=== PATIENT | male | born 1955 | race Caucasian/White ===

== ENCOUNTER 2017-09-03 10:10 | Inpatient (IN) | payer OTHER ==
[~2017-09-03 10:10] MED LIST: ETOMIDATE 20 MG INJ; SUCCINYLCHOLINE CHLORIDE 100 MG/5 ML SYG IV
[2017-09-03] MEDS: SODIUM CHLORIDE 0.9% 1L BAG IV* (10:35)
[2017-09-03] MEDS: CEFEPIME 1GM/50 ML (PMX) 50 ML IVPB (10:37)
[2017-09-03] MEDS: ACETAMINOPHEN 650 MG SUPP PR (10:40)
[2017-09-03 10:42] LABS: ADD MAN DIFF? NO
[2017-09-03 10:51] LABS: ABNORMAL IP MESSAGE 1; BASOPHILS % 0.2 % (0.0-2.0); HEMATOCRIT 38.8 % (42.0-52.0); HEMOGLOBIN 12.2 g/dl (14.0-18.0); LYMPHOCYTES # 0.5 10^3/ul (0.8-2.9); LYMPHOCYTES % 4.8 % (15.0-51.0); MEAN CORPUSCULAR HEMOGLOBIN 31.6 pg (29.0-33.0); MEAN CORPUSCULAR HGB CONC 31.4 g/dl (32.0-37.0); MEAN CORPUSCULAR VOLUME 100.5 fl (82.0-101.0); MEAN PLATELET VOLUME 9.8 fl (7.4-10.4); MONOCYTE # 1.1 10^3/ul (0.3-0.9); MONOCYTES % 10.5 % (0.0-11.0); NEUTROPHIL # 8.6 10^3/ul (1.6-7.5); NEUTROPHILS % 83.7 % (39.0-77.0); PLATELET COUNT 357 10^3/UL (140-415); POSITIVE DIFF @See below; RED BLOOD COUNT 3.86 10^6/ul (4.70-6.10); RED CELL DISTRIBUTION WIDTH 12.4 % (11.5-14.5)
[2017-09-03 10:51] LABS: WHITE BLOOD COUNT 10.2 10^3/ul (4.8-10.8)
[2017-09-03] MEDS: VANCOMYCIN 1 GM (PMX) 250 ML IVPB (10:51)
[2017-09-03] MEDS: MIDAZOLAM (DRIP) 50 mg/50 mL 50 ML IV (10:55)
[2017-09-03 10:57] LABS: ADD UMIC YES; UR ASCORBIC ACID NEGATIVE (NEGATIVE); UR BACTERIA FEW /HPF (NONE SEEN); UR BILIRUBIN (Dip) NEGATIVE (NEGATIVE); UR BLOOD (Dip) 1+ mg/dL (NEGATIVE); UR CLARITY CLEAR (CLEAR); UR COLOR AMBER (YELLOW); UR GLUCOSE (Dip) NEGATIVE (NEGATIVE); UR KETONES (Dip) NEGATIVE (NEGATIVE); UR LEUKOCYTE ESTERASE (Dip) NEGATIVE Leu/ul (NEGATIVE); UR MUCUS FEW /HPF (NONE SEEN); UR NITRITE (Dip) NEGATIVE (NEGATIVE); UR RBC 1 /HPF (0-5); UR SPECIFIC GRAVITY (Dip) 1.032 (1.003-1.030); UR TOTAL PROTEIN (Dip) 2+ mg/dl (NEGATIVE); UR UROBILINOGEN (Dip) 2+ mg/dL (NEGATIVE); UR WBC 2 /HPF (0-5)
[2017-09-03 11:09] LABS: INR 1.36; PT RATIO 1.3
[2017-09-03 11:12] LABS: AADO2 Arterial 300.3 mmHg (7.0-24.0); Allen Test ACCEPTAB; Arterial Base Excess -8.4 mmol/L (-3.0-3); Arterial Blood Gas Oxygen Sat 99.4 mmHG (95.0-98.0); Arterial COHb 0.3 % (0.0-3.0); Arterial Fraction of Oxyhgb 98.7 % (93.0-99.0); Arterial HCO3 18.2 mmol/L (22.0-26.0); Arterial MetHb 0.4 % (0.0-1.5); Arterial Total Hemglobin 12.2 g/dl (12.0-18.0); Arterial pCO2 41.5 mmhg (35-45); MODE VENT - AC; Site Right Radial
[2017-09-03 11:17] LABS: ALANINE AMINOTRANSFERASE 39 IU/L (13-69); ALBUMIN/GLOBULIN RATIO 0.71; ALKALINE PHOSPHATASE 154 IU/L (42-121); ANION GAP 12 (8-16); ASPARTATE AMINO TRANSFERASE 32 IU/L (15-46); BILIRUBIN,INDIRECT 1.1 mg/dl (0-1.1); BILIRUBIN,TOTAL 1.2 mg/dl (0.2-1.3); BLOOD UREA NITROGEN 37 mg/dl (7-20); CALCIUM 8.1 mg/dl (8.4-10.2); CARBON DIOXIDE 22 mmol/L (21-31); CHLORIDE 127 mmol/L (97-110); CREATININE 1.07 mg/dl (0.61-1.24); GLUCOSE 137 mg/dl (70-220); LIPASE 79 U/L (23-300); POTASSIUM 4.2 mmol/L (3.5-5.1); SODIUM 157 mmol/L (135-144); TOTAL PROTEIN 7.2 g/dl (6.1-8.1)
[2017-09-03 11:28] LABS: TROPONIN-I 0.098 ng/ml (0.000-0.120)
[2017-09-03] MEDS ORDERED: LORAZEPAM 2 MG INJ (11:56)
[2017-09-03] MEDS: LORAZEPAM 2 MG INJ IV (12:02)
[2017-09-03] MEDS ORDERED: DANTROLENE 20 MG INJ IV (12:03)
[2017-09-03 12:15] LABS: PARTIAL THROMBOPLASTIN TIME 26.2 Sec (25.0-35.0)
[2017-09-03] MEDS: DANTROLENE SODIUM 250 MG VIAL IV (12:24)
[2017-09-03 13:04] LABS: LACTIC ACID 1.4 mmol/L (0.5-2.0)
[2017-09-03] MEDS: SOD CHLORIDE 0.9% 1,000 ML IV ×2 (13:40→16:30)
[2017-09-03] MEDS ORDERED: NORepinephrine 8MG/250 ML (PMX 250 ML (14:40)
[2017-09-03] MEDS: NORepinephrine 8MG/250 ML (PMX 250 ML IV (14:49)
[2017-09-03] MEDS ORDERED: MAGNESIUM HYDROXIDE 30ML CUP PO (16:00)
[2017-09-03] MEDS ORDERED: HYDROCODONE/APAP (5/325) TAB PO (16:00)
[2017-09-03] MEDS ORDERED: NACL 0.9% 3 ML SYG IV (16:00)
[2017-09-03] MEDS ORDERED: BISACODYL (EC) 5 MG TAB PO (16:00)
[2017-09-03] MEDS ORDERED: VANCOMYCIN IV PER PHARMACY XX (16:00)
[2017-09-03] MEDS ORDERED: ONDANSETRON 4 MG INJ IV (16:00)
[2017-09-03] MEDS ORDERED: DOCUSATE SODIUM 100 MG CAP PO (16:00)
[2017-09-03 16:06] LABS: CREATINE KINASE 81 IU/L (23-200)
[2017-09-03 16:06] LABS: ALBUMIN 2.3 g/dl (3.3-4.9); ANION GAP 6 (8-16); BLOOD UREA NITROGEN 31 mg/dl (7-20); CALCIUM 6.5 mg/dl (8.4-10.2); CARBON DIOXIDE 18 mmol/L (21-31); CHLORIDE 132 mmol/L (97-110); CREATININE 0.77 mg/dl (0.61-1.24); GLUCOSE 122 mg/dl (70-220); PHOSPHORUS 3.6 mg/dl (2.5-4.9); POTASSIUM 3.4 mmol/L (3.5-5.1); SODIUM 153 mmol/L (135-144)
[2017-09-03 16:53] LABS: AMMONIA 13 umol/l (9-30)
[2017-09-03 17:23] LABS: THYROID STIMULATING HORMONE 0.528 MIU/L (0.465-4.680)
[2017-09-03] MEDS: PIPER-TAZO 3.375 GM IV (PMX) 100 ML IVPB (17:37)
[2017-09-03] MEDS: DEXTROSE 5% 1,000 ML IV (17:37)
[2017-09-03] MEDS ORDERED: PENDING SANTYL ORDER FOR WOUND CARE XX (19:00)
[2017-09-03 20:14] LABS: AADO2 Arterial 232.6 mmHg (7.0-24.0); Allen Test ACCEPTAB; Arterial Base Excess -5.1 mmol/L (-3.0-3); Arterial Blood Gas Oxygen Sat 98.9 mmHG (95.0-98.0); Arterial COHb 0.3 % (0.0-3.0); Arterial Fraction of Oxyhgb 98.3 % (93.0-99.0); Arterial HCO3 18.9 mmol/L (22.0-26.0); Arterial MetHb 0.3 % (0.0-1.5); Arterial Total Hemglobin 12.2 g/dl (12.0-18.0); Arterial pCO2 32.1 mmhg (35-45); MODE VENT - AC; Site Right Radial
[2017-09-03 21:09] LABS: ALANINE AMINOTRANSFERASE 28 IU/L (13-69); ALBUMIN 2.6 g/dl (3.3-4.9); ALKALINE PHOSPHATASE 118 IU/L (42-121); ANION GAP 11 (8-16); ASPARTATE AMINO TRANSFERASE 27 IU/L (15-46); BILIRUBIN,INDIRECT 0.7 mg/dl (0-1.1); BILIRUBIN,TOTAL 1.1 mg/dl (0.2-1.3); BLOOD UREA NITROGEN 30 mg/dl (7-20); CALCIUM 7.4 mg/dl (8.4-10.2); CARBON DIOXIDE 21 mmol/L (21-31); CHLORIDE 126 mmol/L (97-110); CREATININE 0.69 mg/dl (0.61-1.24); GLUCOSE 146 mg/dl (70-220); POTASSIUM 3.5 mmol/L (3.5-5.1); SODIUM 154 mmol/L (135-144); TOTAL PROTEIN 6.3 g/dl (6.1-8.1)
[2017-09-03] MEDS: VANCOMYCIN 750 MG in SOD CHLORIDE 0.9% 150 ML IVPB (22:39)
[2017-09-04] MEDS: PANTOPRAZOLE 40 MG INJ IV (05:39)
[2017-09-04] MEDS: PIPER-TAZO 3.375 GM IV (PMX) 100 ML IVPB ×5 (05:39→23:57)
[2017-09-04 05:40] LABS: ADD MAN DIFF? NO
[2017-09-04 05:43] LABS: WHITE BLOOD COUNT 15.1 10^3/ul (4.8-10.8)
[2017-09-04 05:43] LABS: BASOPHILS % 0.2 % (0.0-2.0); EOSINOPHILS % 0.1 % (0.0-7.0); HEMATOCRIT 34.7 % (42.0-52.0); HEMOGLOBIN 11.2 g/dl (14.0-18.0); LYMPHOCYTES # 1.6 10^3/ul (0.8-2.9); LYMPHOCYTES % 10.3 % (15.0-51.0); MEAN CORPUSCULAR HEMOGLOBIN 32.6 pg (29.0-33.0); MEAN CORPUSCULAR HGB CONC 32.3 g/dl (32.0-37.0); MEAN CORPUSCULAR VOLUME 100.9 fl (82.0-101.0); MEAN PLATELET VOLUME 10.2 fl (7.4-10.4); MONOCYTE # 0.6 10^3/ul (0.3-0.9); MONOCYTES % 3.6 % (0.0-11.0); NEUTROPHIL # 12.9 10^3/ul (1.6-7.5); NEUTROPHILS % 85.2 % (39.0-77.0); PLATELET COUNT 282 10^3/UL (140-415); RED BLOOD COUNT 3.44 10^6/ul (4.70-6.10); RED CELL DISTRIBUTION WIDTH 12.8 % (11.5-14.5)
[2017-09-04 06:09] LABS: CREATINE KINASE 59 IU/L (23-200)
[2017-09-04 06:14] LABS: ALANINE AMINOTRANSFERASE 30 IU/L (13-69); ALBUMIN 2.3 g/dl (3.3-4.9); ALBUMIN/GLOBULIN RATIO 0.65; ALKALINE PHOSPHATASE 123 IU/L (42-121); ANION GAP 8 (8-16); ASPARTATE AMINO TRANSFERASE 23 IU/L (15-46); BILIRUBIN,INDIRECT 0.7 mg/dl (0-1.1); BILIRUBIN,TOTAL 0.9 mg/dl (0.2-1.3); BLOOD UREA NITROGEN 26 mg/dl (7-20); CARBON DIOXIDE 21 mmol/L (21-31); CHLORIDE 128 mmol/L (97-110); CREATININE 0.63 mg/dl (0.61-1.24); GLUCOSE 108 mg/dl (70-220); MAGNESIUM 1.8 mg/dl (1.7-2.5); POTASSIUM 3.6 mmol/L (3.5-5.1); SODIUM 153 mmol/L (135-144); TOTAL PROTEIN 5.8 g/dl (6.1-8.1)
[2017-09-04 06:21] LABS: HEMOGLOBIN A1C 5.2 % (0-5.9)
[2017-09-04 08:36] LABS: AADO2 Arterial 178.3 mmHg (7.0-24.0); Allen Test ACCEPTAB; Arterial COHb 0.3 % (0.0-3.0); Arterial Fraction of Oxyhgb 94.5 % (93.0-99.0); Arterial HCO3 19.3 mmol/L (22.0-26.0); Arterial MetHb 0.2 % (0.0-1.5); Arterial Total Hemglobin 11.4 g/dl (12.0-18.0); Arterial pCO2 29.7 mmhg (35-45); MODE VENT - AC; Site Right Radial
[2017-09-04] MEDS: MIDAZOLAM (DRIP) 50 mg/50 mL 50 ML IV (08:52)
[2017-09-04] MEDS: VANCOMYCIN 750 MG in SOD CHLORIDE 0.9% 150 ML IVPB ×2 (09:37→21:27)
[2017-09-04] MEDS: DEXTROSE 5% 1,000 ML IV ×2 (09:38→11:27)
[2017-09-04 12:22] LABS: HAAIG REFLEX REFLEX FILED
[2017-09-04] MEDS: PROPOFOL 100 ML IV (12:43)
[2017-09-04] MEDS ORDERED: PROPOFOL 100 ML IV (13:00)
[2017-09-04] MEDS: ACETAMINOPHEN 325 MG TAB PO (15:34)
[2017-09-04 21:02] LABS: VANCOMYCIN,TROUGH 7.7 ug/ml (10.0-20.0)
[2017-09-04 21:42] LABS: HIV 1&2 ANTIBODY NEGATIVE (NEGATIVE)
[2017-09-05] MEDS: DEXTROSE 5% 1,000 ML IV ×2 (02:50→07:00)
[2017-09-05 04:19] LABS: HEPATITIS B SURFACE ANTIGEN NEGATIVE (NEGATIVE)
[2017-09-05 04:37] LABS: HEPATITIS B CORE ANTIBODY NEGATIVE (NEGATIVE); HEPATITIS C VIRAL ANTIBODY REACTIVE (NEGATIVE)
[2017-09-05 05:03] LABS: Allen Test ACCEPTAB; Arterial Base Excess -1.3 mmol/L (-3.0-3); Arterial Blood Gas Oxygen Sat 97.6 mmHG (95.0-98.0); Arterial COHb 0.7 % (0.0-3.0); Arterial Fraction of Oxyhgb 96.5 % (93.0-99.0); Arterial HCO3 21.1 mmol/L (22.0-26.0); Arterial MetHb 0.4 % (0.0-1.5); Arterial pCO2 29.5 mmhg (35-45); MODE VENT - AC; Site Right Radial
[2017-09-05 05:27] LABS: ADD MAN DIFF? NO
[2017-09-05 05:31] LABS: BASOPHILS % 0.2 % (0.0-2.0); EOSINOPHILS % 0.1 % (0.0-7.0); HEMATOCRIT 34.9 % (42.0-52.0); HEMOGLOBIN 11.3 g/dl (14.0-18.0); LYMPHOCYTES # 0.9 10^3/ul (0.8-2.9); LYMPHOCYTES % 5.3 % (15.0-51.0); MEAN CORPUSCULAR HEMOGLOBIN 32.3 pg (29.0-33.0); MEAN CORPUSCULAR HGB CONC 32.4 g/dl (32.0-37.0); MEAN CORPUSCULAR VOLUME 99.7 fl (82.0-101.0); MEAN PLATELET VOLUME 10.4 fl (7.4-10.4); MONOCYTE # 0.5 10^3/ul (0.3-0.9); MONOCYTES % 3.3 % (0.0-11.0); NEUTROPHIL # 14.7 10^3/ul (1.6-7.5); NEUTROPHILS % 90.2 % (39.0-77.0); PLATELET COUNT 217 10^3/UL (140-415); RED CELL DISTRIBUTION WIDTH 12.7 % (11.5-14.5)
[2017-09-05 05:31] LABS: WHITE BLOOD COUNT 16.2 10^3/ul (4.8-10.8)
[2017-09-05] MEDS: VANCOMYCIN 750 MG in SOD CHLORIDE 0.9% 150 ML IVPB ×4 (05:55→21:13)
[2017-09-05] MEDS: PANTOPRAZOLE 40 MG INJ IV (05:55)
[2017-09-05 05:56] LABS: MAGNESIUM 1.7 mg/dl (1.7-2.5)
[2017-09-05] MEDS: PIPER-TAZO 3.375 GM IV (PMX) 100 ML IVPB ×3 (05:56→18:26)
[2017-09-05 06:03] LABS: ALANINE AMINOTRANSFERASE 28 IU/L (13-69); ALBUMIN 2.6 g/dl (3.3-4.9); ALKALINE PHOSPHATASE 143 IU/L (42-121); ANION GAP 9 (8-16); ASPARTATE AMINO TRANSFERASE 26 IU/L (15-46); BILIRUBIN,INDIRECT 0.8 mg/dl (0-1.1); BILIRUBIN,TOTAL 1.2 mg/dl (0.2-1.3); BLOOD UREA NITROGEN 19 mg/dl (7-20); CARBON DIOXIDE 22 mmol/L (21-31); CHLORIDE 120 mmol/L (97-110); CREATININE 0.63 mg/dl (0.61-1.24); GLUCOSE 113 mg/dl (70-220); POTASSIUM 3.1 mmol/L (3.5-5.1); SODIUM 148 mmol/L (135-144); TOTAL PROTEIN 6.3 g/dl (6.1-8.1)
[2017-09-05 06:10] LABS: LACTIC ACID 1.3 mmol/L (0.5-2.0)
[2017-09-05 06:26] LABS: FREE THYROXINE INDEX (Calc) 3.98 ug/ml (0.65-3.89); T3 UPTAKE 43.3 % (23.5-40.5); T4 (THYROXINE) 9.2 ug/dl (5.5-11.0)
[2017-09-05 06:55] LABS: AMMONIA < 9 umol/l (9-30)
[2017-09-05] MEDS: POTASSIUM CHLORIDE 50 ML IVPB ×2 (09:56→11:37)
[2017-09-05] MEDS: MUPIROCIN 2% 22 GM OINT TOP ×2 (10:54→21:13)
[2017-09-05] MEDS: PROPOFOL 100 ML IV ×2 (11:38→13:00)
[2017-09-05] MEDS: COLLAGENASE 5 GM (UD JAR) TOP (16:00)
[2017-09-05] MEDS: ACETAMINOPHEN 325 MG TAB PO (19:48)
[2017-09-06] MEDS: PIPER-TAZO 3.375 GM IV (PMX) 100 ML IVPB ×4 (00:56→17:03)
[2017-09-06 04:51] LABS: AADO2 Arterial 147.6 mmHg (7.0-24.0); Allen Test ACCEPTAB; Arterial Base Excess -2.6 mmol/L (-3.0-3); Arterial Blood Gas Oxygen Sat 97.9 mmHG (95.0-98.0); Arterial COHb 0.3 % (0.0-3.0); Arterial Fraction of Oxyhgb 97.3 % (93.0-99.0); Arterial HCO3 20.5 mmol/L (22.0-26.0); Arterial MetHb 0.3 % (0.0-1.5); Arterial pCO2 30.6 mmhg (35-45); MODE VENT - AC; Site Right Radial
[2017-09-06 05:02] LABS: ADD MAN DIFF? NO
[2017-09-06 05:24] LABS: BASOPHILS % 0.2 % (0.0-2.0); EOSINOPHILS # 0.1 10^3/ul (0.0-0.5); EOSINOPHILS % 0.4 % (0.0-7.0); HEMATOCRIT 32.1 % (42.0-52.0); HEMOGLOBIN 10.3 g/dl (14.0-18.0); LYMPHOCYTES # 1.1 10^3/ul (0.8-2.9); LYMPHOCYTES % 5.8 % (15.0-51.0); MEAN CORPUSCULAR HEMOGLOBIN 31.5 pg (29.0-33.0); MEAN CORPUSCULAR HGB CONC 32.1 g/dl (32.0-37.0); MEAN CORPUSCULAR VOLUME 98.2 fl (82.0-101.0); MONOCYTE # 0.6 10^3/ul (0.3-0.9); MONOCYTES % 3.1 % (0.0-11.0); NEUTROPHIL # 17.4 10^3/ul (1.6-7.5); PLATELET COUNT 238 10^3/UL (140-415); RED BLOOD COUNT 3.27 10^6/ul (4.70-6.10); RED CELL DISTRIBUTION WIDTH 12.8 % (11.5-14.5)
[2017-09-06 05:24] LABS: WHITE BLOOD COUNT 19.5 10^3/ul (4.8-10.8)
[2017-09-06 05:28] LABS: LACTIC ACID 1.1 mmol/L (0.5-2.0)
[2017-09-06 05:33] LABS: AMMONIA < 9 umol/l (9-30)
[2017-09-06] MEDS ORDERED: NORepinephrine 8MG/250 ML (PMX 0 ML (05:47)
[2017-09-06 05:53] LABS: VANCOMYCIN,TROUGH 13.1 ug/ml (10.0-20.0)
[2017-09-06] MEDS: PANTOPRAZOLE 40 MG INJ IV (06:00)
[2017-09-06] MEDS: VANCOMYCIN 750 MG in SOD CHLORIDE 0.9% 150 ML IVPB ×3 (06:00→22:22)
[2017-09-06 06:01] LABS: ALANINE AMINOTRANSFERASE 27 IU/L (13-69); ALBUMIN 2.4 g/dl (3.3-4.9); ALKALINE PHOSPHATASE 135 IU/L (42-121); ANION GAP 7 (8-16); ASPARTATE AMINO TRANSFERASE 24 IU/L (15-46); BILIRUBIN,INDIRECT 0.8 mg/dl (0-1.1); BLOOD UREA NITROGEN 21 mg/dl (7-20); CALCIUM 7.9 mg/dl (8.4-10.2); CARBON DIOXIDE 23 mmol/L (21-31); CHLORIDE 118 mmol/L (97-110); CREATININE 0.58 mg/dl (0.61-1.24); GLUCOSE 110 mg/dl (70-220); POTASSIUM 3.2 mmol/L (3.5-5.1); SODIUM 145 mmol/L (135-144); TOTAL PROTEIN 5.8 g/dl (6.1-8.1)
[2017-09-06 06:51] LABS: MAGNESIUM 1.8 mg/dl (1.7-2.5)
[2017-09-06] MEDS: PROPOFOL 100 ML IV ×2 (08:25→12:34)
[2017-09-06] MEDS: MUPIROCIN 2% 22 GM OINT TOP ×2 (08:26→21:00)
[2017-09-06] MEDS: POTASSIUM CHLORIDE 20 MEQ POWDER FOR ORAL SOLN PO (09:02)
[2017-09-06] MEDS ORDERED: POTASSIUM CHLORIDE 20 MEQ POWDER FOR ORAL SOLN PO (09:30)
[2017-09-06 11:17] LABS: AADO2 Arterial 97.4 mmHg (7.0-24.0); Allen Test ACCEPTAB; Arterial Base Excess -1.9 mmol/L (-3.0-3); Arterial Blood Gas Oxygen Sat 96.4 mmHG (95.0-98.0); Arterial COHb 0.3 % (0.0-3.0); Arterial Fraction of Oxyhgb 95.8 % (93.0-99.0); Arterial HCO3 21.1 mmol/L (22.0-26.0); Arterial MetHb 0.3 % (0.0-1.5); Arterial Total Hemglobin 12.2 g/dl (12.0-18.0); Arterial pCO2 30.9 mmhg (35-45); Blood Gas PS 10; MODE VENT - CPAP; Site Right Radial
[2017-09-06] MEDS: DEXTROSE 5% 1,000 ML IV (11:43)
[2017-09-06] MEDS: MEROPENEM 500MG/50 ML (PMX) 50 ML IVPB ×2 (13:01→22:21)
[2017-09-06] MEDS: COLLAGENASE 5 GM (UD JAR) TOP (16:18)
[2017-09-06] MEDS: BALSAM PERU/CASTOR OIL 60 GM TUBE TOP ×2 (16:18→21:00)
[2017-09-06] MEDS: ACETAMINOPHEN 325 MG TAB PO (17:04)
[2017-09-07] MEDS: PIPER-TAZO 3.375 GM IV (PMX) 100 ML IVPB ×3 (05:36→11:36)
[2017-09-07] MEDS: MEROPENEM 500MG/50 ML (PMX) 50 ML IVPB ×3 (05:36→21:37)
[2017-09-07] MEDS: PANTOPRAZOLE 40 MG INJ IV (05:36)
[2017-09-07 06:27] LABS: ADD MAN DIFF? NO
[2017-09-07] MEDS: VANCOMYCIN 750 MG in SOD CHLORIDE 0.9% 150 ML IVPB ×3 (06:33→22:10)
[2017-09-07 06:37] LABS: WHITE BLOOD COUNT 12.4 10^3/ul (4.8-10.8)
[2017-09-07 06:37] LABS: BASOPHILS % 0.3 % (0.0-2.0); EOSINOPHILS # 0.1 10^3/ul (0.0-0.5); HEMATOCRIT 33.6 % (42.0-52.0); LYMPHOCYTES # 0.7 10^3/ul (0.8-2.9); LYMPHOCYTES % 5.3 % (15.0-51.0); MEAN CORPUSCULAR HEMOGLOBIN 31.6 pg (29.0-33.0); MEAN CORPUSCULAR HGB CONC 32.7 g/dl (32.0-37.0); MEAN CORPUSCULAR VOLUME 96.6 fl (82.0-101.0); MEAN PLATELET VOLUME 11.2 fl (7.4-10.4); MONOCYTE # 0.5 10^3/ul (0.3-0.9); NEUTROPHILS % 88.9 % (39.0-77.0); PLATELET COUNT 256 10^3/UL (140-415); RED BLOOD COUNT 3.48 10^6/ul (4.70-6.10); RED CELL DISTRIBUTION WIDTH 12.8 % (11.5-14.5)
[2017-09-07 07:00] LABS: ALANINE AMINOTRANSFERASE 24 IU/L (13-69); ALBUMIN 2.5 g/dl (3.3-4.9); ALBUMIN/GLOBULIN RATIO 0.69; ALKALINE PHOSPHATASE 205 IU/L (42-121); ANION GAP 7 (8-16); ASPARTATE AMINO TRANSFERASE 33 IU/L (15-46); BILIRUBIN,INDIRECT 0.5 mg/dl (0-1.1); BILIRUBIN,TOTAL 0.7 mg/dl (0.2-1.3); BLOOD UREA NITROGEN 20 mg/dl (7-20); CALCIUM 7.9 mg/dl (8.4-10.2); CARBON DIOXIDE 25 mmol/L (21-31); CHLORIDE 116 mmol/L (97-110); CREATININE 0.49 mg/dl (0.61-1.24); GLUCOSE 105 mg/dl (70-220); MAGNESIUM 1.9 mg/dl (1.7-2.5); POTASSIUM 3.3 mmol/L (3.5-5.1); SODIUM 145 mmol/L (135-144); TOTAL PROTEIN 6.1 g/dl (6.1-8.1)
[2017-09-07 07:42] LABS: Allen Test ACCEPTAB; Arterial Base Excess -0.9 mmol/L (-3.0-3); Arterial Blood Gas Oxygen Sat 93.6 mmHG (95.0-98.0); Arterial COHb 0.2 % (0.0-3.0); Arterial Fraction of Oxyhgb 93.3 % (93.0-99.0); Arterial HCO3 21.4 mmol/L (22.0-26.0); Arterial MetHb 0.1 % (0.0-1.5); Arterial pCO2 28.6 mmhg (35-45); MODE VENT - AC; Site Right Radial
[2017-09-07] MEDS: PROPOFOL 100 ML IV ×2 (08:01→13:00)
[2017-09-07] MEDS: THIAMINE 100 MG TAB NGT (09:03)
[2017-09-07] MEDS: MUPIROCIN 2% 22 GM OINT TOP ×2 (09:03→21:37)
[2017-09-07] MEDS: ASCORBIC ACID 500 MG TAB PO (09:03)
[2017-09-07] MEDS: BALSAM PERU/CASTOR OIL 60 GM TUBE TOP ×2 (09:03→21:36)
[2017-09-07] MEDS: COLLAGENASE 5 GM (UD JAR) TOP (09:03)
[2017-09-07] MEDS: ZINC SULFATE 220 MG CAP NGT (09:03)
[2017-09-07] MEDS: morphine 2 MG INJ IV (09:36)
[2017-09-07] MEDS: LORAZEPAM 2 MG INJ IV ×2 (10:15→23:25)
[2017-09-07] MEDS: POTASSIUM CHLORIDE 20 MEQ POWDER FOR ORAL SOLN PO (11:33)
[2017-09-07] MEDS ORDERED: POLYMYXIN/BACITRACIN 1L IRRIG (11:33)
[2017-09-07] MEDS ORDERED: MIDAZOLAM 1 MG/ML 2 ML INJ (12:02)
[2017-09-07] MEDS ORDERED: ROCURONIUM 50 MG INJ (12:02)
[2017-09-07] MEDS ORDERED: NEOSTIGMINE 3 MG/3 ML SYRINGE (12:02)
[2017-09-07] MEDS ORDERED: PROPOFOL 20 ML (12:02)
[2017-09-07] MEDS ORDERED: GLYCOPYRROLATE 0.4 MG INJ (12:02)
[2017-09-07] MEDS ORDERED: FENTAnyl 50 MCG/ML VIAL (12:02)
[2017-09-07] MEDS ORDERED: LIDOCAINE 2% (SDV) 5 ML INJ (12:02)
[2017-09-07] MEDS: LIDOCAINE 1%/EPI 30 ML INJ (13:18)
[2017-09-07] MEDS: SOD CHLORIDE 0.9% 1,000 ML IV (15:42)
[2017-09-08] MEDS: PROPOFOL 100 ML IV ×2 (01:00→13:00)
[2017-09-08] MEDS: SOD CHLORIDE 0.9% 1,000 ML IV (01:27)
[2017-09-08 04:51] LABS: ADD MAN DIFF? NO
[2017-09-08 04:54] LABS: WHITE BLOOD COUNT 7.1 10^3/ul (4.8-10.8)
[2017-09-08 04:54] LABS: BASOPHILS % 0.3 % (0.0-2.0); EOSINOPHILS # 0.2 10^3/ul (0.0-0.5); EOSINOPHILS % 2.1 % (0.0-7.0); HEMOGLOBIN 9.7 g/dl (14.0-18.0); LYMPHOCYTES # 0.6 10^3/ul (0.8-2.9); LYMPHOCYTES % 8.9 % (15.0-51.0); MEAN CORPUSCULAR HGB CONC 32.3 g/dl (32.0-37.0); MEAN PLATELET VOLUME 11.1 fl (7.4-10.4); MONOCYTE # 0.4 10^3/ul (0.3-0.9); MONOCYTES % 6.1 % (0.0-11.0); NEUTROPHIL # 5.8 10^3/ul (1.6-7.5); PLATELET COUNT 247 10^3/UL (140-415); RED BLOOD COUNT 3.03 10^6/ul (4.70-6.10); RED CELL DISTRIBUTION WIDTH 12.7 % (11.5-14.5)
[2017-09-08 05:15] LABS: ALANINE AMINOTRANSFERASE 34 IU/L (13-69); ALBUMIN 2.1 g/dl (3.3-4.9); ALBUMIN/GLOBULIN RATIO 0.63; ALKALINE PHOSPHATASE 150 IU/L (42-121); ANION GAP 8 (8-16); ASPARTATE AMINO TRANSFERASE 25 IU/L (15-46); BILIRUBIN,INDIRECT 0.6 mg/dl (0-1.1); BILIRUBIN,TOTAL 0.6 mg/dl (0.2-1.3); BLOOD UREA NITROGEN 17 mg/dl (7-20); CALCIUM 7.6 mg/dl (8.4-10.2); CARBON DIOXIDE 23 mmol/L (21-31); CHLORIDE 117 mmol/L (97-110); CREATININE 0.45 mg/dl (0.61-1.24); GLUCOSE 99 mg/dl (70-220); MAGNESIUM 1.8 mg/dl (1.7-2.5); POTASSIUM 3.3 mmol/L (3.5-5.1); SODIUM 145 mmol/L (135-144); TOTAL PROTEIN 5.4 g/dl (6.1-8.1)
[2017-09-08] MEDS: PANTOPRAZOLE 40 MG INJ IV (06:06)
[2017-09-08] MEDS: VANCOMYCIN 750 MG in SOD CHLORIDE 0.9% 150 ML IVPB ×3 (06:06→21:30)
[2017-09-08] MEDS: MEROPENEM 500MG/50 ML (PMX) 50 ML IVPB ×3 (06:06→21:30)
[2017-09-08] MEDS: COLLAGENASE 5 GM (UD JAR) TOP ×2 (09:00→09:02)
[2017-09-08] MEDS: ASCORBIC ACID 500 MG TAB PO (09:02)
[2017-09-08] MEDS: MUPIROCIN 2% 22 GM OINT TOP ×2 (09:02→21:20)
[2017-09-08] MEDS: BALSAM PERU/CASTOR OIL 60 GM TUBE TOP ×2 (09:02→21:19)
[2017-09-08] MEDS: ZINC SULFATE 220 MG CAP NGT (09:02)
[2017-09-08] MEDS: THIAMINE 100 MG TAB NGT (09:04)
[2017-09-08] MEDS: MAGNESIUM SULFATE 2 GM/50 ML 50 ML IVPB (09:08)
[2017-09-08] MEDS: POTASSIUM CHLORIDE 20 MEQ POWDER FOR ORAL SOLN NGT ×2 (10:24→13:49)
[2017-09-08 14:30] LABS: AADO2 Arterial 90.3 mmHg (7.0-24.0); Allen Test ACCEPTAB; Arterial Base Excess -0.9 mmol/L (-3.0-3); Arterial Blood Gas Oxygen Sat 95.8 mmHG (95.0-98.0); Arterial COHb 0.3 % (0.0-3.0); Arterial Fraction of Oxyhgb 95.2 % (93.0-99.0); Arterial HCO3 23.1 mmol/L (22.0-26.0); Arterial MetHb 0.3 % (0.0-1.5); Arterial Total Hemglobin 11.4 g/dl (12.0-18.0); Arterial pCO2 35.7 mmhg (35-45); Blood Gas PS 10; MODE VENT - CPAP; Site Right Radial
[2017-09-09] MEDS: PROPOFOL 100 ML IV ×2 (01:00→12:28)
[2017-09-09 05:24] LABS: ADD MAN DIFF? NO
[2017-09-09 05:33] LABS: BASOPHILS % 0.4 % (0.0-2.0); EOSINOPHILS # 0.2 10^3/ul (0.0-0.5); EOSINOPHILS % 2.2 % (0.0-7.0); HEMATOCRIT 30.9 % (42.0-52.0); HEMOGLOBIN 10.2 g/dl (14.0-18.0); LYMPHOCYTES # 0.8 10^3/ul (0.8-2.9); LYMPHOCYTES % 9.2 % (15.0-51.0); MEAN CORPUSCULAR HEMOGLOBIN 32.4 pg (29.0-33.0); MEAN CORPUSCULAR VOLUME 98.1 fl (82.0-101.0); MONOCYTE # 0.5 10^3/ul (0.3-0.9); MONOCYTES % 6.5 % (0.0-11.0); NEUTROPHIL # 6.7 10^3/ul (1.6-7.5); NEUTROPHILS % 81.1 % (39.0-77.0); PLATELET COUNT 347 10^3/UL (140-415); RED BLOOD COUNT 3.15 10^6/ul (4.70-6.10); RED CELL DISTRIBUTION WIDTH 12.5 % (11.5-14.5)
[2017-09-09 05:33] LABS: WHITE BLOOD COUNT 8.2 10^3/ul (4.8-10.8)
[2017-09-09] MEDS: VANCOMYCIN 750 MG in SOD CHLORIDE 0.9% 150 ML IVPB (05:35)
[2017-09-09] MEDS: PANTOPRAZOLE 40 MG INJ IV (05:35)
[2017-09-09] MEDS: MEROPENEM 500MG/50 ML (PMX) 50 ML IVPB (05:35)
[2017-09-09 05:55] LABS: VANCOMYCIN,TROUGH 17.5 ug/ml (10.0-20.0)
[2017-09-09 05:59] LABS: ALANINE AMINOTRANSFERASE 32 IU/L (13-69); ALBUMIN 2.3 g/dl (3.3-4.9); ALBUMIN/GLOBULIN RATIO 0.65; ALKALINE PHOSPHATASE 196 IU/L (42-121); ANION GAP 9 (8-16); ASPARTATE AMINO TRANSFERASE 40 IU/L (15-46); BILIRUBIN,INDIRECT 0.5 mg/dl (0-1.1); BILIRUBIN,TOTAL 0.5 mg/dl (0.2-1.3); BLOOD UREA NITROGEN 13 mg/dl (7-20); CALCIUM 7.7 mg/dl (8.4-10.2); CARBON DIOXIDE 25 mmol/L (21-31); CHLORIDE 113 mmol/L (97-110); GLUCOSE 108 mg/dl (70-220); MAGNESIUM 2.1 mg/dl (1.7-2.5); POTASSIUM 3.7 mmol/L (3.5-5.1); SODIUM 143 mmol/L (135-144); TOTAL PROTEIN 5.8 g/dl (6.1-8.1)
[2017-09-09 07:42] LABS: AADO2 Arterial 91.2 mmHg (7.0-24.0); Allen Test ACCEPTAB; Arterial Base Excess 3.7 mmol/L (-3.0-3); Arterial Blood Gas Oxygen Sat 96.5 mmHG (95.0-98.0); Arterial COHb 0.3 % (0.0-3.0); Arterial Fraction of Oxyhgb 95.9 % (93.0-99.0); Arterial HCO3 26.5 mmol/L (22.0-26.0); Arterial MetHb 0.3 % (0.0-1.5); Arterial Total Hemglobin 11.1 g/dl (12.0-18.0); Arterial pCO2 33.7 mmhg (35-45); MODE VENT - AC; Site Right Radial
[2017-09-09] MEDS: THIAMINE 100 MG TAB NGT (08:15)
[2017-09-09] MEDS: MUPIROCIN 2% 22 GM OINT TOP ×2 (08:15→21:10)
[2017-09-09] MEDS: ACETAMINOPHEN 325 MG TAB PO (08:15)
[2017-09-09] MEDS: ZINC SULFATE 220 MG CAP NGT (08:15)
[2017-09-09] MEDS: ASCORBIC ACID 500 MG TAB PO (08:15)
[2017-09-09] MEDS: BALSAM PERU/CASTOR OIL 60 GM TUBE TOP ×2 (08:16→21:10)
[2017-09-09] MEDS: MEROPENEM 1 GM/50ML(PMX) 50 ML IVPB ×2 (13:42→21:25)
[2017-09-09 14:27] LABS: AADO2 Arterial 81.3 mmHg (7.0-24.0); Allen Test ACCEPTAB; Arterial Base Excess 2.8 mmol/L (-3.0-3); Arterial COHb 0.3 % (0.0-3.0); Arterial Fraction of Oxyhgb 96.5 % (93.0-99.0); Arterial HCO3 26.2 mmol/L (22.0-26.0); Arterial MetHb 0.2 % (0.0-1.5); Arterial Total Hemglobin 11.3 g/dl (12.0-18.0); Arterial pCO2 35.8 mmhg (35-45); Blood Gas PS 10; MODE VENT - CPAP; Site Right Radial
[2017-09-09] MEDS: VANCOMYCIN 500MG/NS (PMX) 100 ML IVPB ×2 (14:55→22:33)
[2017-09-10] MEDS: PROPOFOL 100 ML IV (01:00)
[2017-09-10 04:50] LABS: ADD MAN DIFF? NO
[2017-09-10 04:55] LABS: WHITE BLOOD COUNT 7.6 10^3/ul (4.8-10.8)
[2017-09-10 04:55] LABS: BASOPHILS % 0.3 % (0.0-2.0); EOSINOPHILS # 0.2 10^3/ul (0.0-0.5); HEMATOCRIT 29.8 % (42.0-52.0); HEMOGLOBIN 9.6 g/dl (14.0-18.0); LYMPHOCYTES # 0.8 10^3/ul (0.8-2.9); LYMPHOCYTES % 10.8 % (15.0-51.0); MEAN CORPUSCULAR HEMOGLOBIN 31.2 pg (29.0-33.0); MEAN CORPUSCULAR HGB CONC 32.2 g/dl (32.0-37.0); MEAN CORPUSCULAR VOLUME 96.8 fl (82.0-101.0); MEAN PLATELET VOLUME 10.9 fl (7.4-10.4); MONOCYTE # 0.4 10^3/ul (0.3-0.9); MONOCYTES % 4.9 % (0.0-11.0); NEUTROPHIL # 6.2 10^3/ul (1.6-7.5); NEUTROPHILS % 81.2 % (39.0-77.0); PLATELET COUNT 335 10^3/UL (140-415); RED BLOOD COUNT 3.08 10^6/ul (4.70-6.10); RED CELL DISTRIBUTION WIDTH 12.7 % (11.5-14.5)
[2017-09-10 05:36] LABS: ANION GAP 6 (8-16); BLOOD UREA NITROGEN 8 mg/dl (7-20); CALCIUM 7.7 mg/dl (8.4-10.2); CARBON DIOXIDE 30 mmol/L (21-31); CHLORIDE 107 mmol/L (97-110); CREATININE 0.43 mg/dl (0.61-1.24); GLUCOSE 85 mg/dl (70-220); PHOSPHORUS 3.1 mg/dl (2.5-4.9); POTASSIUM 3.5 mmol/L (3.5-5.1); SODIUM 139 mmol/L (135-144)
[2017-09-10] MEDS: MEROPENEM 1 GM/50ML(PMX) 50 ML IVPB ×3 (05:54→21:44)
[2017-09-10] MEDS: PANTOPRAZOLE 40 MG INJ IV (05:54)
[2017-09-10] MEDS: VANCOMYCIN 500MG/NS (PMX) 100 ML IVPB ×3 (06:27→23:41)
[2017-09-10 08:12] LABS: AADO2 Arterial 72.8 mmHg (7.0-24.0); Arterial Base Excess 3.7 mmol/L (-3.0-3); Arterial Blood Gas Oxygen Sat 95.3 mmHG (95.0-98.0); Arterial COHb 0.4 % (0.0-3.0); Arterial Fraction of Oxyhgb 94.6 % (93.0-99.0); Arterial HCO3 27.3 mmol/L (22.0-26.0); Arterial MetHb 0.3 % (0.0-1.5); Arterial Total Hemglobin 11.3 g/dl (12.0-18.0); Arterial pCO2 37.2 mmhg (35-45); MODE NASAL CANNULA; Site Right Brachial
[2017-09-10] MEDS: ASCORBIC ACID 500 MG TAB PO (08:24)
[2017-09-10] MEDS: THIAMINE 100 MG TAB NGT (08:24)
[2017-09-10] MEDS: ZINC SULFATE 220 MG CAP NGT (08:24)
[2017-09-10] MEDS: BALSAM PERU/CASTOR OIL 60 GM TUBE TOP ×2 (08:54→20:23)
[2017-09-10] MEDS: MUPIROCIN 2% 22 GM OINT TOP ×2 (08:54→20:23)
[2017-09-10 23:11] LABS: VANCOMYCIN,TROUGH 12.5 ug/ml (10.0-20.0)
[2017-09-11] MEDS: MEROPENEM 1 GM/50ML(PMX) 50 ML IVPB ×3 (05:07→23:29)
[2017-09-11] MEDS: PANTOPRAZOLE 40 MG INJ IV (05:07)
[2017-09-11] MEDS: VANCOMYCIN 500MG/NS (PMX) 100 ML IVPB ×2 (05:08→18:06)
[2017-09-11 05:13] LABS: ADD MAN DIFF? NO
[2017-09-11 05:22] LABS: BASOPHIL # 0.1 10^3/ul (0.0-0.1); BASOPHILS % 0.6 % (0.0-2.0); EOSINOPHILS # 0.1 10^3/ul (0.0-0.5); HEMATOCRIT 31.8 % (42.0-52.0); HEMOGLOBIN 10.6 g/dl (14.0-18.0); LYMPHOCYTES # 0.8 10^3/ul (0.8-2.9); LYMPHOCYTES % 9.2 % (15.0-51.0); MEAN CORPUSCULAR HEMOGLOBIN 32.3 pg (29.0-33.0); MEAN CORPUSCULAR HGB CONC 33.3 g/dl (32.0-37.0); MEAN PLATELET VOLUME 10.5 fl (7.4-10.4); MONOCYTE # 0.4 10^3/ul (0.3-0.9); MONOCYTES % 5.1 % (0.0-11.0); NEUTROPHIL # 6.8 10^3/ul (1.6-7.5); NEUTROPHILS % 83.5 % (39.0-77.0); PLATELET COUNT 411 10^3/UL (140-415); RED BLOOD COUNT 3.28 10^6/ul (4.70-6.10); RED CELL DISTRIBUTION WIDTH 12.4 % (11.5-14.5)
[2017-09-11 05:22] LABS: WHITE BLOOD COUNT 8.2 10^3/ul (4.8-10.8)
[2017-09-11 05:42] LABS: ALBUMIN 2.7 g/dl (3.3-4.9); ANION GAP 8 (8-16); BLOOD UREA NITROGEN 7 mg/dl (7-20); CALCIUM 8.1 mg/dl (8.4-10.2); CARBON DIOXIDE 30 mmol/L (21-31); CHLORIDE 105 mmol/L (97-110); CREATININE 0.45 mg/dl (0.61-1.24); GLUCOSE 83 mg/dl (70-220); PHOSPHORUS 3.2 mg/dl (2.5-4.9); POTASSIUM 3.6 mmol/L (3.5-5.1); SODIUM 139 mmol/L (135-144)
[2017-09-11] MEDS: COLLAGENASE 5 GM (UD JAR) TOP (06:39)
[2017-09-11] MEDS: POTASSIUM CHLORIDE 20 MEQ POWDER FOR ORAL SOLN PO (06:52)
[2017-09-11] MEDS: ASCORBIC ACID 500 MG TAB PO (09:12)
[2017-09-11] MEDS: ZINC SULFATE 220 MG CAP NGT (09:12)
[2017-09-11] MEDS: BALSAM PERU/CASTOR OIL 60 GM TUBE TOP ×2 (09:12→22:13)
[2017-09-11] MEDS: THIAMINE 100 MG TAB NGT (09:12)
[2017-09-11] MEDS: MUPIROCIN 2% 22 GM OINT TOP ×2 (09:12→22:13)
[2017-09-12] MEDS: VANCOMYCIN 500MG/NS (PMX) 100 ML IVPB ×2 (01:04→10:46)
[2017-09-12] MEDS: PANTOPRAZOLE 40 MG INJ IV (05:29)
[2017-09-12] MEDS: MEROPENEM 1 GM/50ML(PMX) 50 ML IVPB ×2 (05:29→15:00)
[2017-09-12 05:51] LABS: WHITE BLOOD COUNT 7.5 10^3/ul (4.8-10.8)
[2017-09-12 05:51] LABS: ADD MAN DIFF? NO; BASOPHILS % 0.5 % (0.0-2.0); EOSINOPHILS # 0.1 10^3/ul (0.0-0.5); EOSINOPHILS % 1.3 % (0.0-7.0); HEMATOCRIT 30.5 % (42.0-52.0); LYMPHOCYTES # 0.9 10^3/ul (0.8-2.9); LYMPHOCYTES % 11.5 % (15.0-51.0); MEAN CORPUSCULAR HEMOGLOBIN 31.5 pg (29.0-33.0); MEAN CORPUSCULAR HGB CONC 32.8 g/dl (32.0-37.0); MEAN CORPUSCULAR VOLUME 96.2 fl (82.0-101.0); MEAN PLATELET VOLUME 10.6 fl (7.4-10.4); MONOCYTE # 0.5 10^3/ul (0.3-0.9); MONOCYTES % 7.1 % (0.0-11.0); NEUTROPHIL # 5.9 10^3/ul (1.6-7.5); NEUTROPHILS % 79.1 % (39.0-77.0); PLATELET COUNT 448 10^3/UL (140-415); RED BLOOD COUNT 3.17 10^6/ul (4.70-6.10); RED CELL DISTRIBUTION WIDTH 12.6 % (11.5-14.5)
[2017-09-12 06:26] LABS: ALBUMIN 2.6 g/dl (3.3-4.9); ANION GAP 11 (8-16); BLOOD UREA NITROGEN 9 mg/dl (7-20); CARBON DIOXIDE 29 mmol/L (21-31); CHLORIDE 106 mmol/L (97-110); CREATININE 0.41 mg/dl (0.61-1.24); GLUCOSE 92 mg/dl (70-220); MAGNESIUM 2.1 mg/dl (1.7-2.5); PHOSPHORUS 2.9 mg/dl (2.5-4.9); POTASSIUM 3.6 mmol/L (3.5-5.1); SODIUM 142 mmol/L (135-144)
[2017-09-12] MEDS: BALSAM PERU/CASTOR OIL 60 GM TUBE TOP ×2 (08:35→21:25)
[2017-09-12] MEDS: MUPIROCIN 2% 22 GM OINT TOP ×2 (08:35→21:25)
[2017-09-12] MEDS: ASCORBIC ACID 500 MG TAB PO (08:35)
[2017-09-12] MEDS: ZINC SULFATE 220 MG CAP NGT (08:35)
[2017-09-12] MEDS: THIAMINE 100 MG TAB NGT (08:35)
[2017-09-12] MEDS: CIPROFLOXACIN 500 MG TAB PO (18:07)
[2017-09-13] MEDS: PANTOPRAZOLE 40 MG INJ IV (05:37)
[2017-09-13] MEDS: CIPROFLOXACIN 500 MG TAB PO ×2 (05:37→17:23)
[2017-09-13 05:55] LABS: ADD MAN DIFF? NO
[2017-09-13 06:04] LABS: BASOPHIL # 0.1 10^3/ul (0.0-0.1); BASOPHILS % 0.7 % (0.0-2.0); EOSINOPHILS # 0.1 10^3/ul (0.0-0.5); EOSINOPHILS % 1.3 % (0.0-7.0); HEMOGLOBIN 10.6 g/dl (14.0-18.0); LYMPHOCYTES # 0.9 10^3/ul (0.8-2.9); LYMPHOCYTES % 12.2 % (15.0-51.0); MEAN CORPUSCULAR HEMOGLOBIN 31.3 pg (29.0-33.0); MEAN CORPUSCULAR HGB CONC 32.1 g/dl (32.0-37.0); MEAN CORPUSCULAR VOLUME 97.3 fl (82.0-101.0); MEAN PLATELET VOLUME 10.3 fl (7.4-10.4); MONOCYTE # 0.6 10^3/ul (0.3-0.9); MONOCYTES % 7.4 % (0.0-11.0); NEUTROPHIL # 5.9 10^3/ul (1.6-7.5); NEUTROPHILS % 77.7 % (39.0-77.0); PLATELET COUNT 532 10^3/UL (140-415); RED BLOOD COUNT 3.39 10^6/ul (4.70-6.10); RED CELL DISTRIBUTION WIDTH 12.4 % (11.5-14.5)
[2017-09-13 06:04] LABS: WHITE BLOOD COUNT 7.6 10^3/ul (4.8-10.8)
[2017-09-13 06:24] LABS: ALBUMIN 2.6 g/dl (3.3-4.9); ANION GAP 11 (8-16); BLOOD UREA NITROGEN 9 mg/dl (7-20); CALCIUM 8.4 mg/dl (8.4-10.2); CARBON DIOXIDE 29 mmol/L (21-31); CHLORIDE 104 mmol/L (97-110); CREATININE 0.46 mg/dl (0.61-1.24); GLUCOSE 88 mg/dl (70-220); PHOSPHORUS 2.9 mg/dl (2.5-4.9); POTASSIUM 4.3 mmol/L (3.5-5.1); SODIUM 140 mmol/L (135-144)
[2017-09-13] MEDS: ZINC SULFATE 220 MG CAP NGT (09:19)
[2017-09-13] MEDS: THIAMINE 100 MG TAB NGT (09:19)
[2017-09-13] MEDS: MUPIROCIN 2% 22 GM OINT TOP ×2 (09:20→21:47)
[2017-09-13] MEDS: BALSAM PERU/CASTOR OIL 60 GM TUBE TOP ×2 (09:20→21:47)
[2017-09-13] MEDS: ASCORBIC ACID 500 MG TAB PO (09:20)
[2017-09-13] MEDS ORDERED: morphine LIQ (10 MG/5 ML) CUP PO (16:30)
[2017-09-14] MEDS: PANTOPRAZOLE 40 MG INJ IV (05:47)
[2017-09-14] MEDS: CIPROFLOXACIN 500 MG TAB PO ×2 (05:47→18:07)
[2017-09-14 07:02] LABS: ADD MAN DIFF? NO
[2017-09-14 07:05] LABS: BASOPHILS % 0.6 % (0.0-2.0); EOSINOPHILS # 0.1 10^3/ul (0.0-0.5); EOSINOPHILS % 1.1 % (0.0-7.0); HEMATOCRIT 33.9 % (42.0-52.0); HEMOGLOBIN 11.1 g/dl (14.0-18.0); LYMPHOCYTES # 0.8 10^3/ul (0.8-2.9); LYMPHOCYTES % 11.5 % (15.0-51.0); MEAN CORPUSCULAR HGB CONC 32.7 g/dl (32.0-37.0); MEAN CORPUSCULAR VOLUME 97.7 fl (82.0-101.0); MEAN PLATELET VOLUME 9.8 fl (7.4-10.4); MONOCYTE # 0.6 10^3/ul (0.3-0.9); MONOCYTES % 7.9 % (0.0-11.0); NEUTROPHIL # 5.5 10^3/ul (1.6-7.5); NEUTROPHILS % 78.3 % (39.0-77.0); PLATELET COUNT 548 10^3/UL (140-415); RED BLOOD COUNT 3.47 10^6/ul (4.70-6.10); RED CELL DISTRIBUTION WIDTH 12.4 % (11.5-14.5)
[2017-09-14 07:30] LABS: ANION GAP 12 (8-16); BLOOD UREA NITROGEN 8 mg/dl (7-20); CALCIUM 8.5 mg/dl (8.4-10.2); CARBON DIOXIDE 30 mmol/L (21-31); CHLORIDE 103 mmol/L (97-110); CREATININE 0.47 mg/dl (0.61-1.24); GLUCOSE 91 mg/dl (70-220); MAGNESIUM 2.1 mg/dl (1.7-2.5); PHOSPHORUS 3.4 mg/dl (2.5-4.9); POTASSIUM 3.8 mmol/L (3.5-5.1); SODIUM 141 mmol/L (135-144)
[2017-09-14] MEDS: ASCORBIC ACID 500 MG TAB PO (09:07)
[2017-09-14] MEDS: THIAMINE 100 MG TAB NGT (09:07)
[2017-09-14] MEDS: ZINC SULFATE 220 MG CAP NGT (09:07)
[2017-09-14] MEDS: BALSAM PERU/CASTOR OIL 60 GM TUBE TOP ×2 (09:08→20:59)
[2017-09-14] MEDS: MUPIROCIN 2% 22 GM OINT TOP ×2 (09:08→20:59)
[2017-09-14] MEDS ORDERED: ALBUTEROL/IPRATROPIUM (NEB) 3 ML AMP HHN (10:00)
[2017-09-14] MEDS: ALBUTEROL/IPRATROPIUM (NEB) 3 ML AMP HHN ×2 (14:26→19:41)
[2017-09-15] MEDS: CIPROFLOXACIN 500 MG TAB PO ×2 (05:46→18:39)
[2017-09-15] MEDS: PANTOPRAZOLE (EC) 40 MG TAB PO (05:46)
[2017-09-15 06:27] LABS: ADD MAN DIFF? NO
[2017-09-15 06:33] LABS: WHITE BLOOD COUNT 7.1 10^3/ul (4.8-10.8)
[2017-09-15 06:33] LABS: BASOPHIL # 0.1 10^3/ul (0.0-0.1); BASOPHILS % 0.7 % (0.0-2.0); EOSINOPHILS # 0.1 10^3/ul (0.0-0.5); EOSINOPHILS % 1.1 % (0.0-7.0); HEMATOCRIT 32.8 % (42.0-52.0); HEMOGLOBIN 10.8 g/dl (14.0-18.0); LYMPHOCYTES % 13.5 % (15.0-51.0); MEAN CORPUSCULAR HEMOGLOBIN 32.2 pg (29.0-33.0); MEAN CORPUSCULAR HGB CONC 32.9 g/dl (32.0-37.0); MEAN CORPUSCULAR VOLUME 97.9 fl (82.0-101.0); MEAN PLATELET VOLUME 9.9 fl (7.4-10.4); MONOCYTE # 0.5 10^3/ul (0.3-0.9); MONOCYTES % 7.4 % (0.0-11.0); NEUTROPHIL # 5.5 10^3/ul (1.6-7.5); NEUTROPHILS % 76.9 % (39.0-77.0); PLATELET COUNT 600 10^3/UL (140-415); RED BLOOD COUNT 3.35 10^6/ul (4.70-6.10); RED CELL DISTRIBUTION WIDTH 12.4 % (11.5-14.5)
[2017-09-15 07:01] LABS: ANION GAP 9 (8-16); BLOOD UREA NITROGEN 8 mg/dl (7-20); CALCIUM 8.8 mg/dl (8.4-10.2); CARBON DIOXIDE 31 mmol/L (21-31); CHLORIDE 106 mmol/L (97-110); CREATININE 0.52 mg/dl (0.61-1.24); GLUCOSE 93 mg/dl (70-220); MAGNESIUM 2.1 mg/dl (1.7-2.5); PHOSPHORUS 3.9 mg/dl (2.5-4.9); POTASSIUM 4.1 mmol/L (3.5-5.1); SODIUM 142 mmol/L (135-144)
[2017-09-15] MEDS: ALBUTEROL/IPRATROPIUM (NEB) 3 ML AMP HHN ×3 (08:09→21:25)
[2017-09-15] MEDS: THIAMINE 100 MG TAB NGT (09:05)
[2017-09-15] MEDS: ASCORBIC ACID 500 MG TAB PO (09:05)
[2017-09-15] MEDS: ZINC SULFATE 220 MG CAP NGT (09:05)
[2017-09-15] MEDS: BALSAM PERU/CASTOR OIL 60 GM TUBE TOP ×2 (09:07→20:49)
[2017-09-15] MEDS: MUPIROCIN 2% 22 GM OINT TOP ×2 (09:07→20:48)
[2017-09-16 06:21] LABS: ADD MAN DIFF? NO
[2017-09-16 06:29] LABS: WHITE BLOOD COUNT 6.8 10^3/ul (4.8-10.8)
[2017-09-16 06:29] LABS: BASOPHIL # 0.1 10^3/ul (0.0-0.1); BASOPHILS % 0.9 % (0.0-2.0); EOSINOPHILS # 0.1 10^3/ul (0.0-0.5); EOSINOPHILS % 1.8 % (0.0-7.0); HEMOGLOBIN 10.7 g/dl (14.0-18.0); LYMPHOCYTES % 14.8 % (15.0-51.0); MEAN CORPUSCULAR HGB CONC 32.4 g/dl (32.0-37.0); MEAN CORPUSCULAR VOLUME 98.8 fl (82.0-101.0); MEAN PLATELET VOLUME 9.7 fl (7.4-10.4); MONOCYTE # 0.6 10^3/ul (0.3-0.9); MONOCYTES % 8.1 % (0.0-11.0); NEUTROPHIL # 5.1 10^3/ul (1.6-7.5); NEUTROPHILS % 74.1 % (39.0-77.0); PLATELET COUNT 572 10^3/UL (140-415); RED BLOOD COUNT 3.34 10^6/ul (4.70-6.10); RED CELL DISTRIBUTION WIDTH 12.2 % (11.5-14.5)
[2017-09-16] MEDS: PANTOPRAZOLE (EC) 40 MG TAB PO (06:29)
[2017-09-16] MEDS: CIPROFLOXACIN 500 MG TAB PO ×2 (06:29→18:52)
[2017-09-16 06:58] LABS: ANION GAP 8 (8-16); BLOOD UREA NITROGEN 9 mg/dl (7-20); CALCIUM 8.8 mg/dl (8.4-10.2); CARBON DIOXIDE 32 mmol/L (21-31); CHLORIDE 106 mmol/L (97-110); CREATININE 0.54 mg/dl (0.61-1.24); GLUCOSE 88 mg/dl (70-220); MAGNESIUM 2.1 mg/dl (1.7-2.5); PHOSPHORUS 4.1 mg/dl (2.5-4.9); POTASSIUM 4.2 mmol/L (3.5-5.1); SODIUM 142 mmol/L (135-144)
[2017-09-16] MEDS: ALBUTEROL/IPRATROPIUM (NEB) 3 ML AMP HHN ×3 (08:21→19:43)
[2017-09-16] MEDS: THIAMINE 100 MG TAB NGT (09:24)
[2017-09-16] MEDS: BALSAM PERU/CASTOR OIL 60 GM TUBE TOP ×2 (09:24→20:56)
[2017-09-16] MEDS: MUPIROCIN 2% 22 GM OINT TOP ×2 (09:24→20:56)
[2017-09-16] MEDS: ZINC SULFATE 220 MG CAP NGT (09:24)
[2017-09-16] MEDS: ASCORBIC ACID 500 MG TAB PO (09:24)
[2017-09-16] MEDS: LIDOCAINE 1% (MDV) 10 ML INJ (17:56)
[2017-09-16 18:41] LABS: FLD MN% 47.8 %; FLD PMN% 52.2 %; FLD RBC 13000 /uL; FLD WBC 2210 /cmm
[2017-09-16 19:05] LABS: FLUID LD 737 U/L; FLUID TYPE PLEURAL FLUID
[2017-09-16 19:06] LABS: FLUID TOTAL PROTEIN 4.7 g/dl
[2017-09-16 19:07] LABS: FLUID GLUCOSE 94 mg/dl; FLUID TYPE PLEURAL FLUID
[2017-09-16 19:21] LABS: FLD CLARITY CLOUDY
[2017-09-16 19:21] LABS: FLD TYPE PLEURAL
[2017-09-16 19:22] LABS: FLD COLOR YELLOW
[2017-09-17] MEDS: CIPROFLOXACIN 500 MG TAB PO (05:52)
[2017-09-17] MEDS: PANTOPRAZOLE (EC) 40 MG TAB PO (05:52)
[2017-09-17 06:02] LABS: ADD MAN DIFF? NO
[2017-09-17 06:05] LABS: BASOPHIL # 0.1 10^3/ul (0.0-0.1); BASOPHILS % 1.2 % (0.0-2.0); EOSINOPHILS # 0.1 10^3/ul (0.0-0.5); EOSINOPHILS % 1.6 % (0.0-7.0); HEMATOCRIT 34.7 % (42.0-52.0); HEMOGLOBIN 10.9 g/dl (14.0-18.0); LYMPHOCYTES # 1.3 10^3/ul (0.8-2.9); LYMPHOCYTES % 17.3 % (15.0-51.0); MEAN CORPUSCULAR HEMOGLOBIN 30.7 pg (29.0-33.0); MEAN CORPUSCULAR HGB CONC 31.4 g/dl (32.0-37.0); MEAN CORPUSCULAR VOLUME 97.7 fl (82.0-101.0); MEAN PLATELET VOLUME 9.4 fl (7.4-10.4); MONOCYTE # 0.6 10^3/ul (0.3-0.9); MONOCYTES % 7.9 % (0.0-11.0); NEUTROPHIL # 5.2 10^3/ul (1.6-7.5); NEUTROPHILS % 71.7 % (39.0-77.0); PLATELET COUNT 624 10^3/UL (140-415); RED BLOOD COUNT 3.55 10^6/ul (4.70-6.10); RED CELL DISTRIBUTION WIDTH 12.3 % (11.5-14.5)
[2017-09-17 06:05] LABS: WHITE BLOOD COUNT 7.3 10^3/ul (4.8-10.8)
[2017-09-17 06:29] LABS: ANION GAP 9 (8-16); BLOOD UREA NITROGEN 13 mg/dl (7-20); CALCIUM 8.9 mg/dl (8.4-10.2); CARBON DIOXIDE 30 mmol/L (21-31); CHLORIDE 105 mmol/L (97-110); CREATININE 0.52 mg/dl (0.61-1.24); GLUCOSE 92 mg/dl (70-220); PHOSPHORUS 3.7 mg/dl (2.5-4.9); POTASSIUM 4.1 mmol/L (3.5-5.1); SODIUM 140 mmol/L (135-144)
[2017-09-17] MEDS: ALBUTEROL/IPRATROPIUM (NEB) 3 ML AMP HHN ×3 (08:13→20:29)
[2017-09-17] MEDS: ASCORBIC ACID 500 MG TAB PO (09:02)
[2017-09-17] MEDS: ZINC SULFATE 220 MG CAP NGT (09:03)
[2017-09-17] MEDS: BALSAM PERU/CASTOR OIL 60 GM TUBE TOP ×2 (09:04→21:31)
[2017-09-17] MEDS: MUPIROCIN 2% 22 GM OINT TOP ×2 (09:04→21:31)
[2017-09-17] MEDS: THIAMINE 100 MG TAB NGT (09:04)
[2017-09-18 05:57] LABS: ADD MAN DIFF? NO
[2017-09-18 06:02] LABS: BASOPHIL # 0.1 10^3/ul (0.0-0.1); BASOPHILS % 0.9 % (0.0-2.0); EOSINOPHILS # 0.1 10^3/ul (0.0-0.5); EOSINOPHILS % 1.3 % (0.0-7.0); HEMATOCRIT 34.3 % (42.0-52.0); HEMOGLOBIN 11.1 g/dl (14.0-18.0); LYMPHOCYTES # 1.4 10^3/ul (0.8-2.9); LYMPHOCYTES % 18.3 % (15.0-51.0); MEAN CORPUSCULAR HEMOGLOBIN 31.4 pg (29.0-33.0); MEAN CORPUSCULAR HGB CONC 32.4 g/dl (32.0-37.0); MEAN CORPUSCULAR VOLUME 96.9 fl (82.0-101.0); MEAN PLATELET VOLUME 9.8 fl (7.4-10.4); MONOCYTE # 0.9 10^3/ul (0.3-0.9); MONOCYTES % 10.8 % (0.0-11.0); NEUTROPHIL # 5.4 10^3/ul (1.6-7.5); NEUTROPHILS % 68.4 % (39.0-77.0); PLATELET COUNT 632 10^3/UL (140-415); RED BLOOD COUNT 3.54 10^6/ul (4.70-6.10); RED CELL DISTRIBUTION WIDTH 12.2 % (11.5-14.5)
[2017-09-18 06:02] LABS: WHITE BLOOD COUNT 7.9 10^3/ul (4.8-10.8)
[2017-09-18 06:34] LABS: ANION GAP 10 (8-16); BLOOD UREA NITROGEN 11 mg/dl (7-20); CALCIUM 9.1 mg/dl (8.4-10.2); CARBON DIOXIDE 30 mmol/L (21-31); CHLORIDE 105 mmol/L (97-110); CREATININE 0.51 mg/dl (0.61-1.24); GLUCOSE 94 mg/dl (70-220); PHOSPHORUS 3.6 mg/dl (2.5-4.9); POTASSIUM 4.6 mmol/L (3.5-5.1); SODIUM 140 mmol/L (135-144)
[2017-09-18] MEDS: PANTOPRAZOLE (EC) 40 MG TAB PO (06:36)
[2017-09-18] MEDS: ALBUTEROL/IPRATROPIUM (NEB) 3 ML AMP HHN ×3 (08:49→20:42)
[2017-09-18] MEDS: ZINC SULFATE 220 MG CAP NGT (09:59)
[2017-09-18] MEDS: ASCORBIC ACID 500 MG TAB PO (10:00)
[2017-09-18] MEDS: THIAMINE 100 MG TAB NGT (10:00)
[2017-09-18] MEDS: BALSAM PERU/CASTOR OIL 60 GM TUBE TOP ×2 (10:00→21:25)
[2017-09-18] MEDS: MUPIROCIN 2% 22 GM OINT TOP ×2 (10:00→21:25)
[2017-09-19 05:07] LABS: ADD MAN DIFF? NO
[2017-09-19 05:31] LABS: BASOPHIL # 0.1 10^3/ul (0.0-0.1); BASOPHILS % 1.4 % (0.0-2.0); EOSINOPHILS # 0.1 10^3/ul (0.0-0.5); EOSINOPHILS % 1.4 % (0.0-7.0); HEMATOCRIT 33.7 % (42.0-52.0); HEMOGLOBIN 10.9 g/dl (14.0-18.0); LYMPHOCYTES # 1.3 10^3/ul (0.8-2.9); LYMPHOCYTES % 17.5 % (15.0-51.0); MEAN CORPUSCULAR HEMOGLOBIN 31.2 pg (29.0-33.0); MEAN CORPUSCULAR HGB CONC 32.3 g/dl (32.0-37.0); MEAN CORPUSCULAR VOLUME 96.6 fl (82.0-101.0); MEAN PLATELET VOLUME 9.6 fl (7.4-10.4); MONOCYTE # 0.8 10^3/ul (0.3-0.9); MONOCYTES % 10.8 % (0.0-11.0); NEUTROPHILS % 68.5 % (39.0-77.0); RED BLOOD COUNT 3.49 10^6/ul (4.70-6.10); RED CELL DISTRIBUTION WIDTH 12.3 % (11.5-14.5)
[2017-09-19 05:31] LABS: WHITE BLOOD COUNT 7.3 10^3/ul (4.8-10.8)
[2017-09-19] MEDS: PANTOPRAZOLE (EC) 40 MG TAB PO (05:48)
[2017-09-19 05:49] LABS: ANION GAP 11 (8-16); BLOOD UREA NITROGEN 11 mg/dl (7-20); CALCIUM 9.2 mg/dl (8.4-10.2); CARBON DIOXIDE 28 mmol/L (21-31); CHLORIDE 104 mmol/L (97-110); CREATININE 0.55 mg/dl (0.61-1.24); GLUCOSE 93 mg/dl (70-220); PHOSPHORUS 4.3 mg/dl (2.5-4.9); POTASSIUM 3.9 mmol/L (3.5-5.1); SODIUM 139 mmol/L (135-144)
[2017-09-19 06:13] LABS: PLATELET COUNT 652 10^3/UL (140-415)
[2017-09-19] MEDS: ALBUTEROL/IPRATROPIUM (NEB) 3 ML AMP HHN ×3 (08:25→20:27)
[2017-09-19] MEDS: ZINC SULFATE 220 MG CAP NGT (08:49)
[2017-09-19] MEDS: MUPIROCIN 2% 22 GM OINT TOP ×2 (08:49→20:19)
[2017-09-19] MEDS: ASCORBIC ACID 500 MG TAB PO (08:49)
[2017-09-19] MEDS: BALSAM PERU/CASTOR OIL 60 GM TUBE TOP ×2 (08:49→20:19)
[2017-09-19] MEDS: THIAMINE 100 MG TAB NGT (08:50)
[2017-09-20] MEDS: PANTOPRAZOLE (EC) 40 MG TAB PO (06:00)
[2017-09-20 06:01] LABS: ADD MAN DIFF? NO
[2017-09-20 06:05] LABS: WHITE BLOOD COUNT 7.3 10^3/ul (4.8-10.8)
[2017-09-20 06:05] LABS: BASOPHIL # 0.1 10^3/ul (0.0-0.1); BASOPHILS % 1.1 % (0.0-2.0); EOSINOPHILS # 0.1 10^3/ul (0.0-0.5); EOSINOPHILS % 1.1 % (0.0-7.0); HEMOGLOBIN 10.9 g/dl (14.0-18.0); LYMPHOCYTES # 1.3 10^3/ul (0.8-2.9); LYMPHOCYTES % 17.4 % (15.0-51.0); MEAN CORPUSCULAR HEMOGLOBIN 30.7 pg (29.0-33.0); MEAN CORPUSCULAR HGB CONC 32.1 g/dl (32.0-37.0); MEAN CORPUSCULAR VOLUME 95.8 fl (82.0-101.0); MEAN PLATELET VOLUME 9.4 fl (7.4-10.4); MONOCYTE # 0.8 10^3/ul (0.3-0.9); MONOCYTES % 11.4 % (0.0-11.0); NEUTROPHILS % 68.5 % (39.0-77.0); PLATELET COUNT 636 10^3/UL (140-415); RED BLOOD COUNT 3.55 10^6/ul (4.70-6.10); RED CELL DISTRIBUTION WIDTH 12.2 % (11.5-14.5)
[2017-09-20 06:27] LABS: ANION GAP 12 (8-16); BLOOD UREA NITROGEN 11 mg/dl (7-20); CALCIUM 9.1 mg/dl (8.4-10.2); CARBON DIOXIDE 28 mmol/L (21-31); CHLORIDE 104 mmol/L (97-110); CREATININE 0.52 mg/dl (0.61-1.24); GLUCOSE 97 mg/dl (70-220); MAGNESIUM 1.9 mg/dl (1.7-2.5); PHOSPHORUS 4.3 mg/dl (2.5-4.9); POTASSIUM 4.2 mmol/L (3.5-5.1); SODIUM 140 mmol/L (135-144)
[2017-09-20] MEDS: ALBUTEROL/IPRATROPIUM (NEB) 3 ML AMP HHN ×3 (08:21→19:25)
[2017-09-20] MEDS: ASCORBIC ACID 500 MG TAB PO (09:20)
[2017-09-20] MEDS: BALSAM PERU/CASTOR OIL 60 GM TUBE TOP ×2 (09:20→20:26)
[2017-09-20] MEDS: ZINC SULFATE 220 MG CAP NGT (09:20)
[2017-09-20] MEDS: THIAMINE 100 MG TAB NGT (09:20)
[2017-09-20] MEDS: MUPIROCIN 2% 22 GM OINT TOP ×2 (09:20→20:26)
[2017-09-21] MEDS: PANTOPRAZOLE (EC) 40 MG TAB PO (05:18)
[2017-09-21 06:07] LABS: ADD MAN DIFF? NO
[2017-09-21 06:17] LABS: WHITE BLOOD COUNT 7.5 10^3/ul (4.8-10.8)
[2017-09-21 06:17] LABS: BASOPHIL # 0.1 10^3/ul (0.0-0.1); BASOPHILS % 1.1 % (0.0-2.0); EOSINOPHILS # 0.1 10^3/ul (0.0-0.5); EOSINOPHILS % 1.3 % (0.0-7.0); HEMATOCRIT 33.7 % (42.0-52.0); HEMOGLOBIN 10.7 g/dl (14.0-18.0); LYMPHOCYTES # 1.3 10^3/ul (0.8-2.9); MEAN CORPUSCULAR HEMOGLOBIN 30.4 pg (29.0-33.0); MEAN CORPUSCULAR HGB CONC 31.8 g/dl (32.0-37.0); MEAN CORPUSCULAR VOLUME 95.7 fl (82.0-101.0); MEAN PLATELET VOLUME 9.6 fl (7.4-10.4); MONOCYTE # 0.9 10^3/ul (0.3-0.9); MONOCYTES % 11.4 % (0.0-11.0); NEUTROPHIL # 5.2 10^3/ul (1.6-7.5); NEUTROPHILS % 68.9 % (39.0-77.0); PLATELET COUNT 639 10^3/UL (140-415); RED BLOOD COUNT 3.52 10^6/ul (4.70-6.10); RED CELL DISTRIBUTION WIDTH 12.4 % (11.5-14.5)
[2017-09-21 06:36] LABS: ALBUMIN 3.3 g/dl (3.3-4.9); ANION GAP 11 (8-16); BLOOD UREA NITROGEN 14 mg/dl (7-20); CALCIUM 9.2 mg/dl (8.4-10.2); CARBON DIOXIDE 27 mmol/L (21-31); CHLORIDE 106 mmol/L (97-110); GLUCOSE 102 mg/dl (70-220); MAGNESIUM 1.9 mg/dl (1.7-2.5); PHOSPHORUS 3.8 mg/dl (2.5-4.9); POTASSIUM 4.5 mmol/L (3.5-5.1); SODIUM 139 mmol/L (135-144)
[2017-09-21] MEDS ORDERED: ROCURONIUM 50 MG INJ (07:00)
[2017-09-21] MEDS ORDERED: ALBUMIN HUMAN 25% 100 ML INJ (07:00)
[2017-09-21] MEDS ORDERED: CEFAZOLIN 1 GM INJ (07:00)
[2017-09-21] MEDS: ALBUTEROL/IPRATROPIUM (NEB) 3 ML AMP HHN ×3 (07:53→19:35)
[2017-09-21] MEDS: ASCORBIC ACID 500 MG TAB PO (08:44)
[2017-09-21] MEDS: THIAMINE 100 MG TAB NGT (08:45)
[2017-09-21] MEDS: ZINC SULFATE 220 MG CAP NGT (08:45)
[2017-09-21] MEDS: BALSAM PERU/CASTOR OIL 60 GM TUBE TOP ×2 (08:46→21:37)
[2017-09-21] MEDS: MUPIROCIN 2% 22 GM OINT TOP ×2 (08:46→21:37)
[2017-09-21] MEDS ORDERED: MIDAZOLAM 1 MG/ML 2 ML INJ (18:15)
[2017-09-21] MEDS ORDERED: PROPOFOL 20 ML (18:15)
[2017-09-21] MEDS ORDERED: FENTAnyl 50 MCG/ML VIAL (18:15)
[2017-09-21] MEDS ORDERED: LIDOCAINE 2% (SDV) 5 ML INJ (18:21)
[2017-09-21] MEDS ORDERED: SUGAMMADEX SODIUM 200 MG/2 ML VIAL IV (18:21)
[2017-09-21] MEDS ORDERED: ONDANSETRON 4 MG INJ (18:22)
[2017-09-21] MEDS ORDERED: CA CHLORIDE 10% 10 ML SYRINGE (19:12)
[2017-09-21] MEDS: BUPIVACAINE 0.5% (SDV) 30 ML INJ (19:39)
[2017-09-21] MEDS ORDERED: FENTAnyl 50 MCG/ML VIAL IV (20:00)
[2017-09-21] MEDS ORDERED: IPRATROPIUM (NEB) 0.5 MG/2.5 ML AMP HHN (20:00)
[2017-09-21] MEDS ORDERED: HYDROmorphONE 1 MG/5 ML IV SYRINGE IV ×2 (20:00)
[2017-09-21] MEDS ORDERED: ONDANSETRON 4 MG INJ IV (20:00)
[2017-09-21] MEDS ORDERED: ALBUMIN HUMAN 5% 250 ML IV (20:00)
[2017-09-21] MEDS ORDERED: DIPHENHYDRAMINE 50 MG INJ IV (20:00)
[2017-09-22 06:08] LABS: ADD MAN DIFF? NO
[2017-09-22 06:10] LABS: WHITE BLOOD COUNT 5.7 10^3/ul (4.8-10.8)
[2017-09-22 06:10] LABS: HEMOGLOBIN 9.9 g/dl (14.0-18.0); RED BLOOD COUNT 3.21 10^6/ul (4.70-6.10)
[2017-09-22 06:11] LABS: BASOPHIL # 0.1 10^3/ul (0.0-0.1); BASOPHILS % 1.2 % (0.0-2.0); EOSINOPHILS # 0.1 10^3/ul (0.0-0.5); EOSINOPHILS % 1.8 % (0.0-7.0); HEMATOCRIT 30.8 % (42.0-52.0); LYMPHOCYTES % 18.2 % (15.0-51.0); MEAN CORPUSCULAR HEMOGLOBIN 30.8 pg (29.0-33.0); MEAN CORPUSCULAR HGB CONC 32.1 g/dl (32.0-37.0); MEAN PLATELET VOLUME 9.4 fl (7.4-10.4); MONOCYTE # 0.6 10^3/ul (0.3-0.9); MONOCYTES % 10.4 % (0.0-11.0); NEUTROPHIL # 3.8 10^3/ul (1.6-7.5); PLATELET COUNT 530 10^3/UL (140-415); RED CELL DISTRIBUTION WIDTH 12.4 % (11.5-14.5)
[2017-09-22] MEDS: PANTOPRAZOLE (EC) 40 MG TAB PO (06:21)
[2017-09-22 06:43] LABS: ALBUMIN 3.8 g/dl (3.3-4.9); ANION GAP 11 (8-16); BLOOD UREA NITROGEN 10 mg/dl (7-20); CALCIUM 10.2 mg/dl (8.4-10.2); CARBON DIOXIDE 30 mmol/L (21-31); CHLORIDE 106 mmol/L (97-110); CREATININE 0.43 mg/dl (0.61-1.24); GLUCOSE 95 mg/dl (70-220); PHOSPHORUS 4.4 mg/dl (2.5-4.9); POTASSIUM 4.3 mmol/L (3.5-5.1); SODIUM 143 mmol/L (135-144)
[2017-09-22 06:59] LABS: MAGNESIUM 1.8 mg/dl (1.7-2.5)
[2017-09-22] MEDS: ALBUTEROL/IPRATROPIUM (NEB) 3 ML AMP HHN ×3 (08:01→19:50)
[2017-09-22] MEDS: MUPIROCIN 2% 22 GM OINT TOP ×2 (09:08→21:22)
[2017-09-22] MEDS: ZINC SULFATE 220 MG CAP NGT (09:08)
[2017-09-22] MEDS: BALSAM PERU/CASTOR OIL 60 GM TUBE TOP ×2 (09:08→21:22)
[2017-09-22] MEDS: THIAMINE 100 MG TAB NGT (09:08)
[2017-09-22] MEDS: ASCORBIC ACID 500 MG TAB PO (09:08)
[2017-09-23 05:26] LABS: ADD MAN DIFF? NO
[2017-09-23 05:27] LABS: WHITE BLOOD COUNT 6.5 10^3/ul (4.8-10.8)
[2017-09-23 05:27] LABS: BASOPHIL # 0.1 10^3/ul (0.0-0.1); BASOPHILS % 0.9 % (0.0-2.0); EOSINOPHILS # 0.1 10^3/ul (0.0-0.5); EOSINOPHILS % 2.1 % (0.0-7.0); HEMATOCRIT 33.2 % (42.0-52.0); HEMOGLOBIN 10.7 g/dl (14.0-18.0); LYMPHOCYTES # 1.4 10^3/ul (0.8-2.9); LYMPHOCYTES % 21.8 % (15.0-51.0); MEAN CORPUSCULAR HEMOGLOBIN 31.4 pg (29.0-33.0); MEAN CORPUSCULAR HGB CONC 32.2 g/dl (32.0-37.0); MEAN CORPUSCULAR VOLUME 97.4 fl (82.0-101.0); MEAN PLATELET VOLUME 9.5 fl (7.4-10.4); MONOCYTE # 0.7 10^3/ul (0.3-0.9); NEUTROPHIL # 4.2 10^3/ul (1.6-7.5); NEUTROPHILS % 63.9 % (39.0-77.0); PLATELET COUNT 625 10^3/UL (140-415); RED BLOOD COUNT 3.41 10^6/ul (4.70-6.10); RED CELL DISTRIBUTION WIDTH 12.5 % (11.5-14.5)
[2017-09-23 05:51] LABS: ALBUMIN 3.9 g/dl (3.3-4.9); ANION GAP 12 (8-16); BLOOD UREA NITROGEN 12 mg/dl (7-20); CALCIUM 9.5 mg/dl (8.4-10.2); CARBON DIOXIDE 30 mmol/L (21-31); CHLORIDE 105 mmol/L (97-110); CREATININE 0.48 mg/dl (0.61-1.24); GLUCOSE 96 mg/dl (70-220); MAGNESIUM 1.9 mg/dl (1.7-2.5); PHOSPHORUS 3.8 mg/dl (2.5-4.9); POTASSIUM 4.3 mmol/L (3.5-5.1); SODIUM 143 mmol/L (135-144)
[2017-09-23] MEDS: PANTOPRAZOLE (EC) 40 MG TAB PO (05:55)
[2017-09-23] MEDS: ALBUTEROL/IPRATROPIUM (NEB) 3 ML AMP HHN ×2 (07:43→14:00)
[2017-09-23] MEDS: ASCORBIC ACID 500 MG TAB PO (09:13)
[2017-09-23] MEDS: MUPIROCIN 2% 22 GM OINT TOP (09:13)
[2017-09-23] MEDS: THIAMINE 100 MG TAB NGT (09:13)
[2017-09-23] MEDS: ZINC SULFATE 220 MG CAP NGT (09:14)
[2017-09-23] MEDS: BALSAM PERU/CASTOR OIL 60 GM TUBE TOP (09:14)
== END 2017-09-23 17:25 | DRG 853 ==
LOC: MS2 09-11 07:12 → E/R 10:10 → ICU 13:11
PROC: 0HR6XK3 Replacement of Back Skin with Nonautologous Tissue Substitute, Full Thickness, External Approach (ICD-10-PCS; 2017-09-07 10:00)
PROC: 5A1955Z Respiratory Ventilation, Greater than 96 Consecutive Hours (ICD-10-PCS; principal; 2017-09-07 12:38)
PROC: 0HR6XK3 Replacement of Back Skin with Nonautologous Tissue Substitute, Full Thickness, External Approach (ICD-10-PCS; 2017-09-07 12:38)
PROC: 0W9B3ZZ Drainage of Left Pleural Cavity, Percutaneous Approach (ICD-10-PCS; 2017-09-07 12:38)
DX: A41.9 Sepsis, unspecified organism (principal); L89.323 Pressure ulcer of left buttock, stage 3; L89.153 Pressure ulcer of sacral region, stage 3; R65.21 Severe sepsis with septic shock; J18.9 Pneumonia, unspecified organism; G21.0 Malignant neuroleptic syndrome; G93.49 Other encephalopathy; J96.01 Acute respiratory failure with hypoxia; E87.0 Hyperosmolality and hypernatremia; E44.0 Moderate protein-calorie malnutrition; Z68.1 Body mass index [BMI] 19.9 or less, adult; J90 Pleural effusion, not elsewhere classified; N39.0 Urinary tract infection, site not specified; L89.612 Pressure ulcer of right heel, stage 2; Z93.0 Tracheostomy status; B96.4 Proteus (mirabilis) (morganii) as the cause of diseases classified elsewhere; B95.61 Methicillin susceptible Staphylococcus aureus infection as the cause of diseases classified elsewhere; Z22.322 Carrier or suspected carrier of Methicillin resistant Staphylococcus aureus; F20.9 Schizophrenia, unspecified; G30.9 Alzheimer's disease, unspecified; F02.80 Dementia in other diseases classified elsewhere, unspecified severity, without behavioral disturbance, psychotic disturbance, mood disturbance, and anxiety; F39 Unspecified mood [affective] disorder
CPT/HCPCS: 31500; 36415; 36600; 70450; 71045; 74018; 76942; 80048; 80053; 80069; 80202; 81001; 82140; 82550; 82803; 82945; 83036; 83605; 83615; 83690; 83735; 84100; 84157; 84436; 84443; 84479; 84484; 85025; 85610; 85730; 86703; 86704; 86709; 86803; 86850; 86900; 86901; 87040; 87070; 87081; 87086; 87102; 87116; 87340; 87522; 88104; 88304; 88305; 88311; 89051; 92526; 92610; 93005; 93306; 94002; 94003; 94640; 94664; 94770; 96365; 96366; 96368; 96375; 97110; 97162; 97165; 97530; 97535; 99291-25